=== PATIENT | female | born 1985 | race Caucasian/White ===

== ENCOUNTER 2021-12-20 14:42 | Emergency (ER) | payer OTHER ==
[~2021-12-20] VITALS: Ht 162.6 cm; Wt 80.0 kg
[2021-12-20] MEDS ORDERED: ATEN-73 PO (15:04)
[2021-12-20] MEDS ORDERED: METF-1211 PO (15:04)
[2021-12-20] MEDS ORDERED: ATOR10TA84 PO (15:04)
[2021-12-20] MEDS ORDERED: DiphenhydrAMINE HCL 50 MG CAPSULE PO ONE (16:45)
[2021-12-20] MEDS ORDERED: ACETAMINOPHEN 500 MG TABLET PO ONE (16:45)
[2021-12-20 16:52] LABS: BASOPHILS % (AUTO) 0.3 % (0.0-2.0); EOSINOPHILS % (AUTO) 0.9 % (1.0-6.0); HEMATOCRIT 39.6 % (36-46); HEMOGLOBIN 13.2 g/dL (12.0-16.0); LYMPHOCYTES # (AUTO) 1.1 K/uL (1.0-4.8); LYMPHOCYTES % (AUTO) 12.7 % (22.0-44.0); MEAN CORPUSCULAR HEMOGLOBIN 27.9 pg (26.0-34.0); MEAN CORPUSCULAR HGB CONC 33.4 G/dL (31.0-37.0); MEAN CORPUSCULAR VOLUME 84 fL (80-100); MONOCYTES # (AUTO) 0.6 K/uL (0.1-1.0); MONOCYTES % (AUTO) 7.1 % (2.0-9.0); NEUTROPHILS # (AUTO) 7.1 K/uL (1.8-7.7); PLATELET COUNT (AUTO) 210 K/uL (150-450); RED BLOOD CELL COUNT(AUTO) 4.73 MIL/uL (4.00-5.20)
[2021-12-20 17:02] LABS: ANION GAP 8 mmol/L (8-16); CALCIUM, TOTAL 8.4 mg/dL (8.8-10.5); CARBON DIOXIDE 26 mmol/L (22-29); CHLORIDE 102 mmol/L (98-107); GLOMERULAR FILTR. RATE CALC > 60 mL/min (>60); GLUCOSE,RANDOM 97 mg/dL (70-110); POTASSIUM 3.9 mmol/L (3.5-5.1); SODIUM SERUM 136 mmol/L (136-145); UREA NITROGEN, BLOOD 7 mg/dL (7-18)
[2021-12-20 17:14] LABS: ALANINE AMINOTRANSFERASE 31 U/L (12-78); ALBUMIN 3.6 g/dL (3.4-5.0); ALKALINE PHOSPHATASE 88 U/L (46-116); ASPARTATE AMINOTRANSFERASE 20 U/L (15-37); BILIRUBIN,TOTAL 0.8 mg/dL (0.1-1.0); HCG,QUANTITATIVE < 1 mIU/mL (0-6); TOTAL PROTEIN, SERUM 7.4 g/dL (6.4-8.2)
[2021-12-20 18:08] LABS: ERYTHROCYTE SEDIMENTATION RATE 31 MM/HR (0-20)
[2021-12-20 18:30] VITALS: BP 129/64
== END 2021-12-20 18:51 | disposition home or self-care (01) ==
LOC: EMS 14:42
DX: B08.4 Enteroviral vesicular stomatitis with exanthem (principal); F41.9 Anxiety disorder, unspecified; E11.9 Type 2 diabetes mellitus without complications; E78.00 Pure hypercholesterolemia, unspecified; I10 Essential (primary) hypertension
CPT/HCPCS: 80053; 82962; 84702; 85025; 85651; 86592; 99283; 99285